=== PATIENT | female | born 1955 | race Caucasian/White ===

== ENCOUNTER → 2019-05-09 10:03 | Outpatient (CLI) | payer MEDICARE, SELFPAY ==
--- NOTE | ~2019-05-09 | DEXA_ITS ---
Bone Density Report Name: Trini Pham Age: 63 Sex: Female Ethnicity: White Date of : 1955 Indication: postmenopausal; screening for osteoporosis; height loss; hysterectomy; Referring Provider: Hammad, Elaine Villalba Study: Bone densitometry was performed. Exam Date: May 09, 2019 Accession number: [id number] Bone Density: Region BMD T-score Z-score Classification AP Spine (L2, L3, L4) 0.891 -1.7 0.1 Osteopenia Femoral Neck (Left) 0.680 -1.5 0.0 Osteopenia Total Hip (Left) 0.897 -0.4 0.8 Normal Femoral Neck (Right) 0.750 -0.9 0.6 Normal Total Hip (Right) 0.866 -0.6 0.6 Normal Total Hip Mean 0.882 -0.5 0.7 Normal World Health Organization criteria for BMD impression classify patients as: Normal (T-score at or above -1.0), Osteopenia (T-score between -1.0 and -2.5), or Osteoporosis (T-score at or below -2.5). 10-year Fracture Risk(1): Major Osteoporotic Fracture 8.0% Hip Fracture 0.8% Reported Risk Factors: [place] (), Neck BMD=0.680, BMI=38.0 (1) FRAX(R) Version 3.08. Fracture probability calculated for an untreated patient. Fracture probability may be lower if the patient has received treatment. Clinical Information Provided by Patient: Has used the following medications: Vitamin D, Calcium Has the following medical conditions: Hysterectomy Patient maximum height was 64.0 Menopause Age: 48 No regular weight bearing exercise Does not regularly consume dairy products Drinks caffeinated beverages Onset of menses at age 9 Number of children 3 Impression: The patient has low bone mass, based on the Total Spine T-score. The patient has an estimated ten-year risk of hip fracture of 0.8% and an estimated ten-year risk of major fracture of 8%, based on the WHO FRAX algorithm. Discussion: BONE DENSITY IS LOW AT ONE OR MORE SKELETAL SITES. This patient's lowest T-score is low at one or more skeletal sites. It meets the World Health Organization's (WHO) criteria for ?low bone mass? (T-score between -1.0 and -2.5). The patient's 10-year risk of fracture as calculated by FRAX is less than the threshold where pharmacological therapy is recommended by the National Osteoporosis Foundation (NOF). However, all treatment decisions require clinical judgment and consideration of individual patient factors, including patient preferences, comorbidities, previous drug use, risk factors not captured in the FRAX model (e.g., frailty, falls, vitamin D deficiency, increased bone turnover, interval significant decline in bone density) and possible under or overestimation of fracture risk by FRAX. The patient should follow a healthful lifestyle (good nutrition with adequate calcium and vitamin D, and appropriate weight-bearing exercise). Follow-Up: Consider repeating this study in 2 to 3 yea
== END ==
PROVIDERS: Visit Provider Internal Medicine
DX: Z78.0 Asymptomatic menopausal state (principal); M85.852 Other specified disorders of bone density and structure, left thigh
CPT/HCPCS: 77080

== ENCOUNTER 2019-07-18 20:26 | Emergency (ER) | payer MEDICARE, SELFPAY ==
[2019-07-18] VITALS (14 sets, daily range): BP systolic 118–166; BP diastolic 66–144; PULSE 144–194; RESP 30–48; TEMP 36.8–36.9; O2SAT 77–91
--- NOTE | ~2019-07-18 | XR_ITS ---
EXAMINATION: XR chest-chest tube insert/pos DATE: 07/19/2019 03:22 INDICATION: Chest tube placement TECHNIQUE: frontal view of the chest was obtained. COMPARISON: Chest radiograph dated 07/19/2019 at 2:08 AM FINDINGS: Endotracheal tube tip 4.8 cm above the maday. Nasogastric tube extends below the left hemidiaphragm with distal tip collimated off the study. Interval placement of bilateral chest tubes apically directed on the left and extending inferiorly to wards the cardiophrenic angle on the right. Small residual right pneumothorax. No discernible residua l left pneumothorax. Airspace opacities throughout both lungs which appear significantly increased on the left relative to earlier radiograph dated 07/18/2019. Multiple bilateral calcified pulmonary nodu les consistent with old granulomatous disease. The cardiomediastinal silhouette is normal. Again seen is extensive soft tissue gas at the bilateral chest and neck. Right total shoulder arthroplasty. Sut ure anchors at the left humeral head suggesting prior rotator cuff repair. IMPRESSION: 1. Significant improvement in prior bilateral moderate to large pneumothoraces post bilateral chest t ube placements with small residual right pneumothorax and no discernible left pneumothorax. 2. Bilateral airspace opacities more prominent throughout the left lung despite reexpansion of lungs suggesting underlying airspace disease which could represent pulmonary edema, pneumonia, ARDS or some combination thereof. Reviewed, dictated and finalized at location A. IMPRESSION: 1. Significant improvement in prior bilateral moderate to large pneumothoraces post bilateral chest tube placements with small residual right pneumothorax and no discernible left pneumothorax. 2. Bilateral airspace opacities more prominent throughout the left lung despite reexpansion of lungs suggesting underlying airspace disease which could repres ent pulmonary edema, pneumonia, ARDS or some combination thereof.
--- NOTE | ~2019-07-18 | XR_ITS ---
EXAMINATION: XR chest ET placement, XR abdomen NG/feed tube insert DATE: 07/19/2019 02:26 INDICATION: Endotracheal tube in stomach. Nasogastric tube placement. TECHNIQUE: 1. AP supine view of the chest was obtained. 2. AP supine view of the abdomen was obtained. COMPARISON: Chest radiograph dated 07/18/2019 FINDINGS: CHEST: Endotracheal tube tip 5.1 cm above the maday. Moderate to large bilateral pneumothoraces with partia l collapse of both lungs and depression of the diaphragm. Decreased heart size. Heart and mediastinum remain midline. Extensive bilateral subcutaneous emphysema at the bilateral chest and neck. Right to isabella shoulder arthroplasty. Suture anchors at the left humeral head consistent with prior rotator cuff repair. Abdomen: Nasogastric tube tip in proximal side port in the body of the stomach. Subcutaneous emphysema project s over the abdomen. No dilated gas-filled loops of bowel to suggest obstruction. IMPRESSION: 1. Moderate to large bilateral pneumothoraces. Dr. Nathan beckford discussed the case with Dr. Graham at 2 :30 AM. Reviewed, dictated and finalized at location A. IMPRESSION: 1. Moderate to large bilateral pneumothoraces. Dr. Nathan beckford discussed the case with Dr. Graham at 2:30 AM.
--- NOTE | ~2019-07-18 | XR_ITS ---
XR chest 1V portable 07/18/2019 21:15 Indication: Shortness of breath, cough. COVID positive Procedure: AP portable chest Comparison: No prior studies for comparison. Findings: Heart size upper normal. There is diffuse bilateral airspace disease. No pleural effusion o r pneumothorax. There is right shoulder arthroplasty. Impression: 1: Diffuse bilateral airspace disease may represent pneumonia or edema. Reviewed, dictated and finalized at location A. Impression: 1: Diffuse bilateral airspace disease may represent pneumonia or edema.
--- NOTE | 2019-07-18 20:46 | ECG_ITS ---
Measurements Intervals [place] Rate: 187 P: NE: 0 QRS: -1 QRSD: 85 T: -14 QT: 228 QTc: 403 Interpretive Statements ATRIAL FIBRILLATION WITH RAPID VENTRICULAR RESPONSE DELAYED PRECORDIAL R/S TRANSITION BORDERLINE ST-T WAVE ABNORMALITY- LATERAL LEADS BASELINE WANDER- V6 ABNORMAL ECG Electronically Signed On 07-19-2019 7:11:13 CDT by Bayron Razo D.O.
--- NOTE | 2019-07-18 20:56 | ED.SOB ---
HPI - SOB/Dyspnea General Chief Complaint: Shortness of Breath/Dyspnea Stated Complaint: covid , sob Time Seen by Provider: 07/18/19 20:52 History of Present Illness HPI Narrative: 64 yo female w/ h/o DM, HTN, COVID-19 presents to the ED for SOB. She tested positive for COVID-19 5 days ago. Symptoms worsening since that time. EMS called for SOB today and found her to have an O2 saturation in the 70's. She denies chest pain or fever. History limited due to acuity of her medical condition. Related Data Allergies Allergy/AdvReac Type Severity Reaction Status Date / Time morphine Allergy Unknown Unknown Verified 07/18/19 22:18 Review of Systems Review of Systems: ROS unobtainable: Yes unobtainable due to medical condition Constitutional: Constitutional: Denies fever(s) Cardiovascular: Cardiovascular: Denies chest pain Respiratory: Respiratory: Reports cough and Reports dyspnea PMFSH Past Medical History Medical History COVID-19 HTN (hypertension) IDDM (insulin dependent diabetes mellitus) Social History Social History Gender identity (if verbalized by the patient): Female Exam Const: General: alert and ill appearing acutely Nutritional Appearance: obese Other: Severe distress. Resp: Effort & Inspection: labored and tachypneic Auscultation: rhonchi Cardio: Rate: tachycardic GI: GI Palp: Yes Soft to palpation and No Tenderness to palpation present (GI) Skin: General skin exam: pallor Other: diaphoretic Neuro: General: patient oriented x3 and moves all extremities Course Vital Signs Vital signs: Vital Signs Temperature 36.9 C 07/18/19 20:35 Pulse Rate 176 H 07/18/19 20:35 Respiratory Rate 39 H 07/18/19 20:35 Blood Pressure 127/98 H 07/18/19 20:35 Pulse Oximetry 82 L 07/18/19 20:35 Temperature 36.9 C 07/18/19 23:29 Pulse Rate 54 L 07/19/19 04:20 Respiratory Rate 33 H 07/19/19 04:20 Blood Pressure 84/62 L 07/19/19 04:20 Pulse Oximetry 84 L 07/19/19 04:20 Procedures Central Line Placement Left Femoral: Central Line Date: 07/19/19 Performed Emergently - Given emergent patient condition, temporal constraints may have precluded informed consent.: Yes Max. Sterile Barrier Technique: Caps Central Line Prep: 2% chlorhexidine scrub Emergently Placed, Full Sterile: prep not done Technique: US-Guided Ultrasound Used for Placement: Yes Central Line Lumen Inserted: triple Post Procedure: sutured in place, good blood return, all ports aspirated, flushed, capped and sterile dressing applied Patient Tolerated Procedure: well Complications: hematoma at puncture site Chest Tube Chest Tube 1: Chest Tube Date: 07/19/19 Chest Tube Location: left, mid axillary line and fourth interspace Tube Type: quik thal Chest Tube Prep: Yes other Incision Made With: #11 blade Procedure: seldinger technique Post Procedure: sutured to skin, sterile dressing applied and connected to Pluero Vac Tube Drainage: underwood of air Post Procedure CXR?: Yes Post Procedure: post CXR reviewed, placement appropriate and pneumo resolved Patient Tolerated Procedure: Yes Chest Tube 2: Chest Tube Date: 07/19/19 Chest Tube Location: right, mid axillary line and fourth interspace Tube Type: quik thal Chest Tube Prep: Yes other Incision Made With: #11 blade Procedure: seldinger technique Post Procedure: sutured to skin, sterile dressing applied and connected to Pluero Vac Tube Drainage: underwood of air Post Procedure CXR?: Yes Post Procedure: post CXR reviewed, placement appropriate and pneumo persistent Patient Tolerated Procedure: Yes Intubation Intubation #1: Intubation Date: 07/18/19 sedative: Etomidat
[2019-07-18 21:09] LABS: Basophils Percent Auto 0.2 % (0.2-1.2); Hematocrit 53.4 % (37.0-47.0); Hemoglobin 18.2 g/dL (12.0-15.0); Immature Granulocyte Absolute 0.03 K/mm3 (0.00-0.031); Immature Granulocyte Percent A 0.5 % (0-0.5); Lymphocytes Absolute Auto 1.41 K/mm3 (0.9-3.2); Lymphocytes Percent Auto 22.1 % (18.3-44.2); Mean Corpuscular HGB Conc 34.1 g/dl (32-36); Mean Corpuscular Hemoglobin 30.5 pg (26-34); Mean Corpuscular Volume 89.4 fl (80-100); Mean Platelet Volume 12.3 fl (7.4-10.4); Monocytes Absolute Auto 0.6 K/mm3 (0.1-0.6); Monocytes Percent Auto 9.7 % (2.6-8.5); Neutrophils Absolute Auto 4.3 K/mm3 (1.3-6.7); Neutrophils Percent Auto 67.5 % (45.5-73.1); Platelet Count Result 201 k/mm3 (150-375); Red Blood Count 5.97 M/mm3 (4.2-5.4); Red Cell Distribution Width 12.8 % (11.5-14.5); White Blood Count 6.4 K/mm3 (4.5-10.0)
[2019-07-18] MEDS: SODIUM CHLORIDE 0.9% IV 1,000 ML 999 ML IV CONT (21:10)
--- NOTE | 2019-07-18 21:11 | PC.NURSE ---
Called lab to add on Procalcitonin, LDH, Trop I Baseline, D Dimer, BNP @ [phone]
[2019-07-18 21:18] LABS: Alveolar/Arterial O2 Gradient 496.2 mmHg; Base Excess ABG -5.7 mEq/l (+/-2.0); Carboxyhemoglobin 1.1 % THb (0-2.0); Fractional Inspired Oxygen 80 %; HCO3 ABG 15.1 mEq/l (22.0-26.0); Methemoglobin ABG 0.3 %THb (0-1.5); Oxygen Content ABG 19.1 %vol (16.0-22.0); Oxygen Saturation ABG 90.3 % (95.0-100.0); Oxyhemoglobin 86.4 % THb (90.0-100.0); PO2 ABG 52.5 mmHg (80.0-100.0); PO2 FiO2 Ratio Arterial Blood 0.66 %; Reduced Hemoglobin 12.2 %THb (0-5.0); Total Hemoglobin 15.8 g/dL (12.0-18.0)
[2019-07-18 21:19] LABS: Device HIGH FLOW NASAL CANN; Modified Allen's Test Pass; PCO2 ABG 20.7 mmHg (35.0-45.0); Site Drawn LEFT RADIAL
[2019-07-18 21:26] LABS: Lactic Acid Reflex 2.9 mmol/L (0.7-2.1)
--- NOTE | 2019-07-18 22:00 | PC.NURSE ---
Blood unreceived RN in to redraw blood.
[2019-07-18 22:01] LABS: Add Urine Microscopic? YES; Appearance Urine Cloudy (Clear); Bacteria Urine Trace /hpf; Bilirubin Urine Negative (Negative); Blood Urine 1+ (Negative); Color Urine Yellow (Yellow); Glucose Urine UA 3+ mg/dL (Negative); Ketones Urine 1+ mg/dL (Negative); Leukocyte Esterase Ur Negative LEU/UL (Negative); Mucus Urine Rare /lpf; Nitrate Urine Negative (Negative); Protein Urine 3+ mg/dL (Negative); RBC Urine 0-2 /hpf (0-2); Squamous Epithelial Cell Urine Rare /hpf (Few); Urobilinogen Urine Negative mg/dL (<2.0)
--- NOTE | 2019-07-18 22:15 | PC.NURSE ---
Blood Unrecieved again. Called lab to have troponin released and ask about the issue with blood. EDP notified
--- NOTE | 2019-07-18 22:18 | PC.NURSE ---
Jaylin Billy pt daughter phone number [phone]
--- NOTE | 2019-07-18 22:45 | PC.NURSE ---
phlebotomy called for blood draw. Asked bone density technician to draw blood Krzysztof Maxwell RN in to draw blood via IV
[2019-07-18 23:23] LABS: INR 1.1; Prothrombin Time 13.5 Seconds (11.1-14.7)
[2019-07-18 23:24] LABS: Partial Thromboplastin Time 26.8 SECONDS (22.3-36.8)
[2019-07-18 23:26] LABS: D Dimer 1.19 ug/mL (<0.48)
--- NOTE | 2019-07-18 23:29 | PC.NURSE ---
EDP at bedside along with respiratory, and ELISHA Colon administered by Darlene TELLO VORB EDP Eleno succ 100mg IVP 2331 VORB EDP Eleno etomidate 20 mg IVP 2331 7.5 ET tube placed by EDP Eleno 25 at the lip
[2019-07-18 23:32] LABS: NT Pro B Type Natriuretic Pept 1070 PG/ML (5-100); Troponin I 0.012 ng/mL (0.000-0.034)
--- NOTE | 2019-07-18 23:40 | PC.NURSE ---
cardioversion performed by DANETTE Johansen 100 J. administered 2339 200 j. administered 2340 pt in Sinus tach.
--- NOTE | 2019-07-18 23:51 | PC.NURSE ---
administered 4 mg versed IVP Per RACHEL VORB
[2019-07-19] VITALS (24 sets, daily range): BP systolic 72–167; BP diastolic 34–117; PULSE 54–147; RESP 13–38; O2SAT 23–86
[2019-07-19] LABS: Alanine Aminotransferase 45 U/L (4-35); Albumin Level 2.5 g/dL (3.5-5.1); Alkaline Phosphatase 57 U/L (38-126); Aspartate Amino Transferase 49 U/L (14-36); Bilirubin,Total 0.1 mg/dL (0.2-1.3); Blood Urea Nitrogen 27 mg/dL (7-17); CRP 5.7 mg/dL (<1.0); Calcium 4.7 mg/dL (8.4-10.2); Carbon Dioxide 13 mmol/L (22-30); Chloride 76 mmol/L (98-107); Estimated CRCL calculation 76 ml/min; Estimated Glomerular Filt Rate > 60; Lactate Dehydrogenase 1147 U/L (313-618); Potassium 3.8 mmol/L (3.4-5.0); Sodium 116 mmol/L (137-145)
[2019-07-19 00:25] LABS: Reflex Lactic Acid Yes or No Add Lactic
[2019-07-19] MEDS: INSULIN HUMAN REGULAR (*BKC) 100 UNITS/ML 9 UNITS IV PUSH (00:25)
[2019-07-19] MEDS: INSULIN HUMAN REGULAR (*BKC) 100 UNITS in SODIUM CHLORIDE 0.9% IV 99 ML 23.8 UNITS IV CONT (00:27)
--- NOTE | 2019-07-19 00:30 | ECG_ITS ---
Measurements Intervals [place] Rate: 157 P: [place]: 0 QRS: -2 QRSD: 85 T: 46 QT: 262 QTc: 423 Interpretive Statements ATRIAL FIBRILLATION WITH RAPID VENTRICULAR RESPONSE CANNOT RULE OUT SEPTAL INFARCT, AGE INDETERMINATE ABNORMAL ECG Electronically Signed On 07-19-2019 7:11:52 CDT by Bayron Razo D.O.
[2019-07-19] MEDS: AMIODARONE 360 MG/D5W 200 ML 360 MG/200 ML BAG 33.3 MG IV CONT (00:31)
[2019-07-19] MEDS: AMIODARONE 150 MG/D5W 100 ML 150 MG/100 ML BAG 600 MG IV CONT (00:32)
[2019-07-19 00:33] LABS: Glucose 1321 mg/dL (65-105)
[2019-07-19 00:35] LABS: Glucose Point of Care 418 (65-105)
--- NOTE | 2019-07-19 00:48 | PC.NURSE ---
Addendum entered by Neelam Simon RN 07/19/19 01:38: EDP notified and at bedside. SEE CODE SHEET Original Note: pt restless. pulling at tube. pt lips cyanotic. pulse not found. cpr in progress
--- NOTE | 2019-07-19 00:55 | PC.NURSE ---
pt reintubated w/ 7.5 et tube measured at 23 @ lip
[2019-07-19 01:22] LABS: Phosphorus 2.4 mg/dL (2.5-4.5)
--- NOTE | 2019-07-19 01:24 | PC.NURSE ---
Addendum entered by Neelam Simon RN 07/19/19 01:37: pt gave verbal consent for cardioversion and intubation Original Note: pt gave verbal
[2019-07-19 01:25] LABS: Hemoglobin A1C 9.2 % (<5.7)
--- NOTE | 2019-07-19 02:00 | PC.NURSE ---
Pt daughter Shauna Billy [phone] updated on patient status.
[2019-07-19 02:04] LABS: Glucose Point of Care > 500 (65-105)
--- NOTE | 2019-07-19 03:41 | PC.NURSE ---
[facility] called to transfer pt to [facility] and have accepted ETA [phone]
--- NOTE | 2019-07-19 03:52 | PC.NURSE ---
Called [facility] to transfer pt to [facility] ETA [phone]
[2019-07-19] MEDS: NOREPINEPHRINE 8 MG/D5W 250 ML 8 MG/250 ML BAG 9.4 MG IV CONT (03:53)
[2019-07-19] MEDS: POTASSIUM CHLORIDE INJ 40 MEQ in SODIUM CHLORIDE 0.9% IV 500 ML 130 MEQ IVPB (03:54)
--- NOTE | 2019-07-19 04:06 | PC.NURSE ---
Dr. Johansen & I out to speak with pt. daughter Shauna. She is aware patient will be flown to [place] ICU. Pt daughter at bedside.
--- NOTE | 2019-07-19 04:11 | PC.NURSE ---
[facility] has arrived to take pt to [place] @ [phone]
[2019-07-19 06:11] LABS: Glucose Point of Care 393 (65-105)
== END 2019-07-19 04:20 | disposition short-term general hospital (02) ==
PROVIDERS: Internal Medicine; Emergency Provider Emergency Medicine
DX: U07.1 COVID-19 (principal); R65.21 Severe sepsis with septic shock; J96.01 Acute respiratory failure with hypoxia; J93.9 Pneumothorax, unspecified; I10 Essential (primary) hypertension; E11.9 Type 2 diabetes mellitus without complications; I48.91 Unspecified atrial fibrillation; R94.31 Abnormal electrocardiogram [ECG] [EKG]
CPT/HCPCS: 31500; 32551; 36415; 36556; 36600; 51701; 71045; 80053; 81001; 82375; 82805; 82948; 83036; 83050; 83605; 83615; 83880; 84100; 84145; 84484; 85025; 85380; 85610; 85730; 86140; 87040; 87076; 92960; 93005; 96361; 96365; 96366; 96367; 96368; 96376; 99291; C1729; C1751; J0282; J0330; J0456; J0696; J1815; J2250; J3010; J3480; J7030; J7040